=== PATIENT | female | born 1950 | race Caucasian/White ===

== ENCOUNTER 2018-08-13 11:33 | Outpatient (CLI) | payer MEDICARE ==
--- NOTE | 2018-08-13 15:58 | PET ---
PET CT FROM VERTEX OF SKULL THROUGH MID THIGH: INDICATION: History of secondary malignancy of the bone. TECHNIQUE: PET CT images were obtained from the vertex of the skull through the mid thigh following introducer o f 11.2 mCi F18-FDG IV. CT images were obtained for attenuation correction purposes only. Comparison made to outside CT evaluation of soft tissues of the neck dated 07/30/18 from [facility]. An additional CT of the chest/abdomen/pelvis from [facility] on 09/30/17 was also submitted. No additional comparisons are available. FINDINGS: The biodistribution for the examination appears acceptable. There is some mild background muscular up take seen within the paraspinal muscles and shoulder girdles, as well as the neck soft tissues. Head/Neck: There is some mild increased activity seen within the paraspinal musculatures of the neck, particular ly within the right posterior paraspinal on image 27, as well as within the right longus Colli muscle on image 35. This is likely related to skeletal muscular uptake. No definite hypermetabolic mass or lymphadenopathy is evident. Thorax: No hypermetabolic pulmonary nodules, pleural effusion, or pneumothorax evident. No hypermetabolic med iastinal, hilar, or axillary lymph node evident. Abdomen/Pelvis: There is a mildly hypermetabolic enlarged left external iliac lymph node measuring 1.9 cm with peak u ptake of 3.02. No additional hypermetabolic lymphadenopathy or mass is identified. Skin/Osseous Structures: There is a lytic hypermetabolic lesion involving the left acetabular root measuring 3.0 cm in size. P eak activity is measured at 6.85 . There is a small focus of hypermetabolic activity involving the sk in of the right gluteal region on image 252 of the axial series with a peak activity of 6.39 and may reflect a small superficial skin infection or boil. This also could be reflective of a small skin les ion. Recommend correlation. This is within the right gluteal region. IMPRESSION: Abnormal PET CT: 1. Hypermetabolic lesion of left acetabular root is suspicious for either metastatic disease or a pr imary sarcomatous lesion. There is an enlarged hypermetabolic left external iliac chain lymph node barrera spicious for malignant lymphadenopathy. 2. No additional suspicious findings for metastatic disease. 3. Small focus of hypermetabolic activity involving the skin of the right inferior gluteal region ma y reflect a small inflammatory lesion of the skin or possibly small skin cancer. Recommend direct vis ualization. POS: [place]
== END 2018-08-13 11:34 | disposition home or self-care (01) ==
LOC: PET 11:33
PROVIDERS: ATTEND Internal Medicine Hematology & Oncology
DX: C79.51 Secondary malignant neoplasm of bone (principal); C80.1 Malignant (primary) neoplasm, unspecified; R94.8 Abnormal results of function studies of other organs and systems
CPT/HCPCS: 78815; A9552

== ENCOUNTER 2019-01-14 09:56 | Outpatient (CLI) | payer MEDICARE ==
--- NOTE | 2019-01-14 13:03 | PET ---
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 COMPARISON: 08/13/2018 TECHNIQUE: IV injection of F-18 fluorodeoxyglucose (FDG) dose: 13.1 mCi. PET scan and attenuation correction CT performed from skull base to proximal thighs. PET scan and attenuation correction CT thinner slices performed through head and neck. FINDINGS: SUV (standard uptake values) numbers given are maximum SUVs. QCLR used. Head and neck: No suspicious areas of abnormally increased FDG uptake. (Muscle activity at anterior o ral tongue is probably due to muscle contraction). Osseous/skeletal: Previously, there was a hypermetabolic osteolytic lesion at the anterior column of the left acetabulum. That has been replaced with sclerotic material, and there is now a long metallic screw in that location. No increased FDG uptake is identified in this location. Previously, there was an enlarged adjacent left external iliac chain obturator internus lymph node wh ich had SUV given as 3.0, but actually measured up to 4.3. The current maximum SUV is 3.1, and that degree of uptake subjectively appears to have less degree of increased uptake than previously on the color monitor images. That lymph node is still mildly enlarged, measuring approximately 3 x 1.5 cm, unchanged in size. Furthermore, the femoral head and neck have been surgically resected, and replaced with metallic pros thesis. This proximal femoral metallic prosthesis, and the screw at the anterior column of the acetabulum, cause severe streak artifact, resulting in decrease in the accuracy of PET in the locatio n of streak artifact. However, the left obturator internus lymph node is not effected by this. There is a new finding of an approximately 1 x 0.5 cm left common iliac chain lymph node with SUV of 7.4. This is posterior medial to the lower portion of left psoas muscle, and abuts the left common iliac vein and left common iliac artery, and is not amenable to percutaneous biopsy. There are no other suspicious hypermetabolic FDG avid lesions.. IMPRESSION: 1) new hypermetabolic left common iliac chain lymph node, highly suspicious for malignant metastatic lymphadenopathy. 2) the enlarged left external iliac chain, obturator internus lymph node remains unchanged in size, b ut the degree of FDG uptake appears to have slightly decreased. 3) the hypermetabolic osteolytic lesion at the anterior column of left acetabulum has been curettaged and packed, and further fixated with a long screw. 4) interval status post left hip replacement arthroplasty. 5) the severe streak artifact from the metallic hardware interferes with the accuracy of PET scan in those areas.
== END 2019-01-14 09:57 | disposition home or self-care (01) ==
LOC: PET 09:56
PROVIDERS: ATTEND Internal Medicine Hematology & Oncology
DX: C76.0 Malignant neoplasm of head, face and neck (principal); C79.51 Secondary malignant neoplasm of bone; I77.89 Other specified disorders of arteries and arterioles; Z96.641 Presence of right artificial hip joint
CPT/HCPCS: 78815; A9552

== ENCOUNTER 2019-04-13 11:15 | Outpatient (CLI) | payer MEDICARE ==
--- NOTE | 2019-04-13 14:11 | PET ---
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 Exam is requested for restaging. COMPARISON: 01/14/19, 08/13/18. TECHNIQUE: PET scan with CT attenuation correction was performed from the vertex to the proximal thighs followin g the intravenous administration of 10.8 millicuries of [id number]. FINDINGS: HEAD AND NECK: No abnormal FDG localization. CHEST: No abnormal FDG localization. ABDOMEN AND PELVIS: Interval development of increased FDG avidity involving enlarged left periaortic lymph nodes. These l ymph nodes have a maximum SUV between 5.3 and 5.6. There is FDG avidity involving a lymph node adjace nt to the left common iliac artery with a maximum SUV of 6.0. Redemonstration of hypermetabolic activ ity at the distal aspect of the left common iliac artery with a maximum SUV of 6.0. Previously, the m aximum SUV was 3.9. There is increased FDG avidity involving the left lateral gluteal muscles. Evaluation is limited due to beam attenuation artifact from internal fixation hardware at the left hip. SUV is 4.0. OSSEOUS STRUCTURES: CT used for attenuation correction demonstrates an uncomplicated left hip arthroplasty. There is a me tallic density in the left superior pubic ramus. No obvious evidence metastases in the roof of the le ft acetabulum. IMPRESSION: 1. Increased retroperitoneal lymphadenopathy along the left periaortic region as well as at the level of the left common iliac artery. Additionally, there is increased FDG avidity involving a prev iously described hypermetabolic lymph node involving the distal aspect of the left common iliac chain . 2. No evidence of FDG avidity in the anterior column of the left acetabulum. Evaluation of the l eft hip is limited due to beam attenuation artifact from arthroplasty. POS: SATYA
== END 2019-04-13 11:16 | disposition home or self-care (01) ==
LOC: PET 11:15
PROVIDERS: ATTEND Internal Medicine Hematology & Oncology
DX: C13.8 Malignant neoplasm of overlapping sites of hypopharynx (principal); C79.89 Secondary malignant neoplasm of other specified sites
CPT/HCPCS: 78815; 81001; 87077; 87086; 87186; A9552

== ENCOUNTER 2019-07-23 10:03 | Outpatient (CLI) | payer MEDICARE ==
--- NOTE | 2019-07-23 15:23 | PET ---
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 COMPARISON: PET/CT dated April 13, 2019 FINDINGS: Biodistribution:The biodistribution for the exam appears acceptable. Head and neck: There is appropriate background activity within the brain. No hypermetabolic lymphaden opathy or masses identified. Thorax: No hypermetabolic pulmonary lesion, pleural effusion or lymphadenopathy is present. Abdomen and pelvis: There is expected background activity within the GI and systems.The hypermetab olic left periaortic retroperitoneal lymph nodes have significantly decreased in size and has no associated hypermetabolic uptake. Previously hypermetabolic uptake peak was 9.34. The peak on the cur rent examination is 1.88. The most prominent lymph node now measures 7 mm where previously it measured 1.2 cm. No associated hypermetabolic uptake is seen involving lymph nodes along the left com mon iliac or left external iliac chain. No new hypermetabolic lymph nodes or intra-abdominal mass is demonstrated. No hypermetabolic ascites is present. There are scattered colonic diverticula. There are moderate vascular calcifications seen involving the visualized vasculature. Osseous structures and skin: No hypermetabolic skin or osseous lesion is identified. There is promine nt beam scattering artifact from the patient's left total hip arthroplasty. Curettage and cement packing within the left acetabulum anterior column is similar appearing. IMPRESSION: Findings consistent with response to therapy. 1. The hypermetabolic lymphadenopathy seen along the distal left periaortic retroperitoneal region ex tending along the left common iliac and left external iliac chain are no longer enlarged with no associated hypermetabolic activity. 2. No new hypermetabolic lymph node or mass is identified.
== END 2019-07-23 10:04 | disposition home or self-care (01) ==
LOC: PET 10:03
PROVIDERS: ATTEND Internal Medicine Hematology & Oncology
DX: C79.51 Secondary malignant neoplasm of bone (principal); C13.8 Malignant neoplasm of overlapping sites of hypopharynx; R59.0 Localized enlarged lymph nodes
CPT/HCPCS: 78815; A9552